=== PATIENT | male | born 1975 | race Caucasian/White ===

== ENCOUNTER 2023-06-23 00:39 | Emergency (ER) | payer OTHER, SELFPAY ==
[2023-06-23 00:50] VITALS: BP 128/62; PULSE 120; RESP 20; TEMP 37.6; O2SAT 95; BMI 34.4
--- NOTE | 2023-06-23 01:08 | ED.EXTPRO ---
HPI - Extremity Problem General Chief complaint: Extremity Problem,Nontraumatic Stated complaint: infection in left foot Time Seen by Provider: 06/23/23 01:02 Source: patient Mode of arrival: Ambulatory History of Present Illness HPI Narrative: Gentleman comes to the ED with tender left calf and swelling and redness and lymphangitis in his left lower extremity. No fever or vomiting or abdominal pain or chest symptoms. He did have severe vomiting episode but that was resolved more than 5 days ago. He 1st noticed that abnormality in his left leg this morning with some groin irritation and some medial thigh discomfort but when he finally inspected his leg he noticed marked swelling and redness and warmth in his calf with some streaky redness up the medial aspect of his leg. 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 Related Data Previous Rx's Medication Instructions Recorded doxycycline hyclate 100 mg capsule 100 mg PO BID 10 days #20 caps 06/23/23 Patient History Social History Smoking Status: Never smoker Smoking Status: Never smoker Substance Use Type: marijuana Exam Narrative Exam Narrative: GENERAL: Alert, cooperative and in no distress. HEAD: Atraumatic. Normocephalic. EYES: Sclera are clear without icterus. Extraocular movements are full. 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 The foot otherwise looks pretty good. Has marked swelling tenderness warmth to the medial calf on the left with ascending lymphangitis up into the thigh. NEURO: Nonfocal, normal speech SKIN: No rash or erythema of visible areas PSYCH: Normally oriented. Normal range of affect. Appropriate behavior Initial Vital Signs Initial Vital Signs: Vital Signs Temperature 99.7 F H 06/23/23 00:50 Pulse Rate 120 H 06/23/23 00:50 Respiratory Rate 20 06/23/23 00:50 Blood Pressure 128/62 06/23/23 00:50 Pulse Oximetry 95 06/23/23 00:50 Oxygen Delivery Method Room Air 06/23/23 00:50 Course Vital Signs Vital signs: Vital Signs - 8 hr 06/23/23 00:50 Temperature 99.7 F H Pulse Rate 120 H Respiratory Rate 20 Blood Pressure 128/62 Pulse Oximetry 95 Oxygen Delivery Method Room Air MDM - Extremity (Nontraumatic) MDM Narrative Medical decision making narrative: Obvious cellulitis with lymphangitis. Without systemic symptoms or fever. He does have a resting heart rate of about 115 but he says he is very much prone to this and takes a stimulant for his ADHD and does not make much of his fast heart rate as he sees it commonly with minimal activity. I think it is reasonable to treat him as an outpatient given the lack of vomiting or systemic symptoms but I did tell him in great detail that he needs to return if he is getting sicker at all. He agrees to do so. Discharge Plan Departure Patient Disposition: Home Clinical Impression: Cellulitis Activity Restrictions/Additional Instructions: Take the doxycycline twice daily for 10 days. Follow-up right away for repeated vomiting, high fever or other general worsening of your illness. The redness will take a few days to start to improve. Do not be alarmed if it has a little bit worse over the next couple of days as long as you otherwise feel well. Make sure they are staying well hydrated. Take Tylenol or ibuprofen for discomfort or fever. Prescriptions: New doxycycline hyclate 100 mg capsule 100 mg PO BID 10 Days Qty: 20 0RF Stand Alone Forms: Patient Portal/API
[2023-06-23] MEDS: DOXYCYCLINE HYCLATE 100 MG TABLET PO (01:15)
[2023-06-23 01:26] VITALS: BP 133/75; PULSE 107; RESP 20; O2SAT 94
== END 2023-06-23 01:28 | disposition home or self-care (01) ==
PROVIDERS: Emergency Provider Family Medicine Addiction Medicine
DX: L03.116 Cellulitis of left lower limb (principal)
CPT/HCPCS: 99283